=== PATIENT | female | born 1955 ===

== ENCOUNTER 2017-11-28 18:07 | Emergency (ER) | payer MEDICARE, MEDICAID ==
[2017-11-28 18:13] VITALS: RESP 20
--- NOTE | 2017-11-28 20:15 | C.PDOC ---
History Of Present Illness Patient presents to the ER with a complaint of fever, cough, and headache with cough since yesterday; associated with 4-5 episodes of emesis and decreased PO intake. Denies abdominal pain, diarrhea, chest pain, or SOB. Time Seen by Provider: 11/28/17 20:13 Chief Complaint (Nursing): Fever History Per: Patient History/Exam Limitations: no limitations Current Symptoms Are (Timing): Still Present Sick Contacts (Context): None Associated Symptoms: Fever, Cough, Vomiting, Other (Headache w/ cough). denies : Diarrhea Ear Symptoms: Bilateral: None Severity: Moderate Pain Scale Rating Of: 4 Recent travel outside of the [place]: No Additional History Per: Patient Past Medical History Reviewed: Historical Data, Nursing Documentation, Vital Signs Vital Signs: Last Vital Signs Temp 99.7 F H 11/28/17 18:11 Pulse 97 H 11/28/17 18:11 Resp 20 11/28/17 18:55 BP 115/78 11/28/17 18:11 Pulse Ox 97 11/28/17 20:53 - Medical History PMH: Arthritis, Asthma, HTN, Osteoporosis Surgical History: Cholecystectomy - [facility] Procedures INCIS VULVA/PERINEUM NEC (06/16/14) TETANUS TOXOID ADMINIST (06/16/14) Family History: States: No Known Family Hx - Social History Hx Tobacco Use: No Hx Alcohol Use: No Hx Substance Use: No - Immunization History Hx Tetanus Toxoid Vaccination: No Hx Influenza Vaccination: Yes Hx Pneumococcal Vaccination: No Review Of Systems Constitutional: Positive for: Fever, Other (Decreased PO intake) ENT: Negative for: Throat Pain Cardiovascular: Negative for: Chest Pain, Palpitations Respiratory: Positive for: Cough. Negative for: Shortness of Breath Gastrointestinal: Positive for: Vomiting. Negative for: Diarrhea Musculoskeletal: Negative for: Back Pain Skin: Negative for: Rash Neurological: Positive for: Headache (w/ cough) Psych: Negative for: Suicidal ideation Physical Exam - Physical Exam Appears: Non-toxic Skin: Warm, Dry Head: Normacephalic Eye(s): bilateral: Normal Inspection Oral Mucosa: Dry Neck: Supple Chest: Symmetrical, No Tenderness Cardiovascular: Rhythm Regular Respiratory: No Rales, No Rhonchi, No Wheezing Gastrointestinal/Abdominal: Soft, No Tenderness Back: Normal Inspection Extremity: Bilateral: Atraumatic Neurological/Psych: Oriented x3 Gait: Steady ED Course And Treatment - Laboratory Results Result Diagrams: 11/28/17 20:44 11/28/17 20:44 ECG: Interpreted By Me, Viewed By Me O2 Sat by Pulse Oximetry: 97 (Room air) Pulse Ox Interpretation: Normal - Radiology CXR: Interpreted by Me, Viewed By Me CXR Interpretation: No: Infiltrates, Fracture, Pnemothorax Progress Note: Blood work, urinalysis, and CXR ordered. Tamiflu, zofran, toradol , and IV fluids administered. Disposition Discussed With Dr.: Yulissa Greene Comment: accepted the pt on his service and took over the care at 9AM Doctor Will See Patient In The: Hospital Counseled Patient/Family Regarding: Studies Performed, Diagnosis - Disposition Disposition: HOSPITALIZED Disposition Time: 20:13 Condition: FAIR Forms: [employer] (Macedonian) - Clinical Impression Clinical Impression: Polysubstance abuse - Scribe Statement The provider has reviewed the documentation as recorded by the Scribe Orlando Flores All medical record entries made by the Scribe were at my direction and personally dictated by me. I have reviewed the chart and agree that the record accurately reflects my personal performance of the history, physical exam, medical decision making, and the department course for this patient. I have also personally directed, reviewed, and agree with the discharge instructions and disposition. Decision To Admit - Pt Status Changed To: Hospital Disposition Of: Inpatient - Admit Certification Admit to Inpatient:: After my assessment, the patient will require hospitalization for at least two midnights. This is because of the severity of symptoms shown, intensity of services needed, and/or the medical risk in this patient being treated as an outpatient. - InPatient: Physician Admission Certification:: After my assessment, the patient will require hospitalization for at least two midnights. This is because of the severity of symptoms shown, intensity of services needed, and/or the medical risk in this patient being treated as an outpatient. - . Bed Request Type: Detox Admitting Physician: Yulissa Greene Patient Diagnosis: Polysubstance abuse
[2017-11-28] MEDS ORDERED: Sodium Chloride 0.9% 1,000 ML IV ONE (20:28)
[2017-11-28 20:48] LABS: BASO % 0.4 % (0.0-2.0); EOS # 0.1 K/uL (0.0-0.7); EOS % 1.1 % (0.0-4.0); HEMOGLOBIN 14.9 g/dL (11.0-16.0); LYMPH # 0.9 K/uL (1.0-4.3); LYMPH % 16.2 % (20.0-40.0); MEAN CELL VOLUME 92.4 fL (81.0-99.0); MEAN CORPUSCULAR HEMOGLOBIN 31.2 pg (27.0-31.0); MEAN CORPUSCULAR HGB CONC 33.8 g/dL (33.0-37.0); MEAN PLATELET VOLUME 10.5 fL (7.2-11.7); MONO # 0.6 K/uL (0.0-0.8); MONO % 10.7 % (0.0-10.0); NEUT % 71.6 % (50.0-75.0); RBC 4.77 Mil/uL (3.80-5.20); RED CELL DISTRIBUTION WIDTH 13.4 % (11.5-14.5); WHITE BLOOD COUNT 5.6 K/uL (4.8-10.8)
[2017-11-28 20:56] LABS: INR 1.1
[2017-11-28 21:01] LABS: CALCIUM 9.8 mg/dl (8.6-10.4); GFR AFRICAN-AMERICAN > 60; GFR NON-AFRICAN AMERICAN > 60
[2017-11-28 21:08] LABS: ALB/GLOB RATIO 1.2 (1.0-2.1); ALBUMIN 4.3 g/dL (3.5-5.0); ALT/SGPT 54 U/L (9-52); AST/SGOT 57 U/L (14-36); BLOOD UREA NITROGEN 14 mg/dL (7-17)
[2017-11-28 21:30] LABS: VENOUS BLOOD GAS BASE EXCESS 1.3 mmol/L (0.0-2.0); VENOUS BLOOD GAS PCO2 47 mmHg (40-60); VENOUS BLOOD GAS PO2 31 mm/Hg (30-55); VENOUS BLOOD PH 7.37 (7.32-7.43)
[2017-11-28] MEDS ORDERED: Iodixanol 320 MG/ML 100 ML BOTTLE IV ONE (22:09)
[2017-11-28 22:14] LABS: SQUAMOUS EPITHIAL 4 /hpf (0-5); URINE BACTERIA OCC (<OCC); URINE BILIRUBIN NEGATIVE (NEGATIVE); URINE BLOOD 1+ (NEGATIVE); URINE CLARITY Clear (Clear); URINE COLOR Yellow (YELLOW); URINE GLUCOSE (UA) NORMAL (Normal); URINE LEUKOCYTE ESTERASE 3+ Leu/uL (Negative); URINE NITRATE NEGATIVE (NEGATIVE); URINE PROTEIN NEGATIVE (NEGATIVE); URINE UROBILINOGEN NORMAL mg/dL (0.2-1.0)
[2017-11-28] MEDS ORDERED: Piperacillin/Tazobact 3.375 gm 100 ML IVPB STA (22:18)
--- NOTE | 2017-11-28 23:06 | CT ---
EXAM: CT Abdomen and Pelvis With Intravenous Contrast EXAM DATE/TIME: 11/28/2017 9:21 PM CLINICAL HISTORY: 61 years old, female; Pain and signs and symptoms and abnormal findings; Abnormal lab test; Elevated lipase; Vomiting; Abdominal pain; Generalized; Additional info: Abd pain, elevated liver enzymes TECHNIQUE: Axial computed tomography images of the abdomen and pelvis with intravenous contrast. All CT scans at this facility use one or more dose reduction techniques, viz.: automated exposure control; ma/kV adjustment per patient size (including targeted exams where dose is matched to indication; i.e. head); or iterative reconstruction technique. Coronal and sagittal reformatted images were created and reviewed. CONTRAST: 100 mL of VISIPAQUE 320 administered intravenously. COMPARISON: There are no prior studies for comparison. FINDINGS: Lower thorax: Heart size is normal. There is a small hiatal hernia. There is dependent atelectasis at the lung bases. ABDOMEN: Liver: There is fatty infiltration of the liver. Gallbladder and bile ducts: Gallbladder is absent.Common duct is unremarkable. Pancreas: Pancreas is mildly atrophic. Spleen: unremarkable Adrenals: unremarkable Kidneys and ureters: There are bilateral renal cysts. Kidneys and ureters are otherwise unremarkable. Stomach and bowel: Stomach is partially distended. Rotation is normal. There is no obstruction. Ileocecal region is unremarkable. Appendix and terminal ileum are unremarkable. Colon is incompletely distended which limits evaluation.There is diverticulosis. Appendix: See stomach and bowel PELVIS: Bladder: unremarkable Reproductive: Uterus and adnexal structures are unremarkable. ABDOMEN and PELVIS: Intraperitoneal space: There is no free air or free fluid. Bones/joints: There are no acute osseous abnormalities. There are no acute osseous abnormalities. Soft tissues: There is a small fat containing umbilical hernia. Vasculature: There are vascular calcifications. Lymph nodes: unremarkable IMPRESSION: Fatty liver, no acute solid visceral abnormality; cholecystectomy; no CT findings of appendicitis or diverticulitis Additional nonemergent findings as described above.
[2017-11-28 23:47] VITALS: BP 124/75; PULSE 88; TEMP 99; O2SAT 98
--- NOTE | 2017-11-29 07:34 | RAD ---
HISTORY: SOB COMPARISON: Portable chest 03/07/2014. TECHNIQUE: Chest PA and lateral FINDINGS: LUNGS: No acute infiltrate bilaterally. Linear atelectasis or fibrosis seen minimally at the left base laterally. PLEURA: No significant pleural effusion identified. No pneumothorax apparent. CARDIOVASCULAR: Normal. OSSEOUS STRUCTURES: No significant abnormalities. VISUALIZED UPPER ABDOMEN: Normal. OTHER FINDINGS: None. IMPRESSION: Trace linear atelectasis or fibrosis at the inferior left base laterally. Remainder of the examination appears unremarkable.
== END 2017-11-29 00:15 | disposition home or self-care (01) ==
LOC: C.ER 18:07
DX: F19.10 Other psychoactive substance abuse, uncomplicated (principal); I10 Essential (primary) hypertension
CPT/HCPCS: 71046; 74177; 80053; 81001; 82009; 82803; 85025; 85610; 85730; 96361; 96374; 96375; 99285; J1885; J2405; J7040; Q9967

== ENCOUNTER 2018-08-17 15:07 | Emergency (ER) | payer MEDICARE, MEDICAID ==
[2018-08-17 15:26] VITALS: PULSE 73
--- NOTE | 2018-08-17 15:29 | C.PDOC ---
History Of Present Illness 62 yo female w/PMHx of asthma, HTN come in for evaluation of cold sx gradually developed for past 3 days associated with low grade fever, nasal congestion, dry cough gradually worsen. Pt reports, since today AM developed some chest tightness with cough. Otherwise, pt denies high fever, lethargy, drooling, dysphagia, dypsnea, SOB, wheezing, CP, palpitation, abd. pain, N/V, back pain, UTI sx. Ambulate to Ed for evaluation, not in any apparent distress. Time Seen by Provider: 08/17/18 15:13 Chief Complaint (Nursing): Flu-like Symptoms History Per: Patient Past Medical History Reviewed: Historical Data, Nursing Documentation, Vital Signs Vital Signs: Last Vital Signs Temp 98.1 F 08/17/18 15:09 Pulse 73 08/17/18 15:09 Resp 20 08/17/18 15:09 BP 130/85 08/17/18 15:09 Pulse Ox 99 08/17/18 15:09 - Medical History PMH: Arthritis, Asthma, HTN, Osteoporosis Surgical History: Cholecystectomy - [facility] Procedures INCIS VULVA/PERINEUM NEC (06/16/14) TETANUS TOXOID ADMINIST (06/16/14) Family History: States: Unknown Family Hx - Social History Hx Tobacco Use: No Hx Alcohol Use: No Hx Substance Use: No - Immunization History Hx Tetanus Toxoid Vaccination: No Hx Influenza Vaccination: No Hx Pneumococcal Vaccination: No Review Of Systems Except As Marked, All Systems Reviewed And Found Negative. Constitutional: Positive for: Fever (low grade). Negative for: Chills ENT: Positive for: Nose Discharge, Nose Congestion, Throat Pain. Negative for: Ear Discharge Cardiovascular: Negative for: Chest Pain, Palpitations, Edema, Light Headedness Respiratory: Positive for: Cough. Negative for: Shortness of Breath, SOB with Excertion, Pleuritic Pain, Sputum, Wheezing Gastrointestinal: Negative for: Nausea, Abdominal Pain, Diarrhea Genitourinary: Negative for: Dysuria Musculoskeletal: Negative for: Neck Pain Skin: Negative for: Rash Neurological: Negative for: Weakness, Numbness, Headache, Dizziness Physical Exam - Physical Exam Appears: Well, Non-toxic, No Acute Distress Skin: Normal Color, Warm, Dry, No Rash Head: Normacephalic Eye(s): bilateral: PERRL Ear(s): Bilateral: Normal Nose: No Flaring, Discharge (B/L nasal congestion with scant clear rhinorrhea) Oral Mucosa: Moist, No Drooling Tongue: Normal Appearing Lips: Normal Appearing Throat: No Erythema, No Drooling Neck: Trachea Midline, Supple Cardiovascular: Rhythm Regular, No Murmur, No JVD Respiratory: No Decreased Breath Sounds, No Accessory Muscle Use, No Stridor, No Wheezing Gastrointestinal/Abdominal: Soft, No Tenderness, No Distention, No Guarding, No Rebound Extremity: Normal ROM, No Pedal Edema, No Deformity, No Swelling Neurological/Psych: Oriented x3, Normal Speech, Normal Motor, Normal Sensation, Normal Reflexes ED Course And Treatment ECG: Interpreted By Me, Viewed By Me ECG Rhythm: Sinus Rhythm Interpretation Of ECG: SR@83/min, NAD, no acute T wave or ST-T changes O2 Sat by Pulse Oximetry: 99 Pulse Ox Interpretation: Normal - Radiology CXR: Interpreted by Me, Viewed By Me CXR Interpretation: Yes: No Acute Disease Progress Note: On re-eval, pt is afebrile, hemodynamicaly stable. Non-toxic, tolerate Po well in ED. PulsEOx 99% RA. ENT: no acute findings. neck: Supple, (-) JVD, (-) meningeal sign. Lungs: CTA B/L, BS equal B/L. Abd: benign, (-) guarding, (-) rebound. Back: (-) CVA tenderness. Neurologicaly intact. CXR- normal study. Influenza (-). Pt has clinical findings c/w acute bronchitis. Pt advised. ref. to f/u with PMD in 2-3 days for re-eval. return to ED if any worsening or new changes. Disposition Counseled Patient/Family Regarding: Studies Performed, Diagnosis, Need For Followup, Rx Given - Disposition Referrals: Eliza Baker MD [Medical Doctor] - Disposition: HOME/ ROUTINE Disposition Time: 15:55 Condition: STABLE Additional Instructions: Encourage fluids Take medication as prescribed Follow up with PMD in 2-3 days for re-evaluation. return to ED if any worsening or new changes. Prescriptions: Albuterol HFA [Ventolin HFA 90 mcg/actuation (8 g)] 1 puff IH Q6 #1 inhaler Azithromycin [Zithromax] 250 mg PO DAILY #4 tab Prednisone [Deltasone] 40 mg PO DAILY #6 tablet Promethazine/Codeine [Phenergan/Codeine Oral Syrup] 10 ml PO Q6 #100 ml Instructions: Acute Bronchitis, Adult (DC) Forms: [employer] (Danish) Print Language: LATVIAN - Clinical Impression Clinical Impression: Bronchitis
[2018-08-17] MEDS ORDERED: Albuterol 0.083% Inhal Sol (2.5 mg/3 mL) UD IH STA (15:33)
[2018-08-17] MEDS ORDERED: Promethazine/Cod 6.25mg-10mg/5ml Syr UD PO STA (15:37)
[2018-08-17] MEDS ORDERED: Albuterol 0.083% Inhal Sol (2.5 mg/3 mL) UD ONE (15:43)
[2018-08-17] MEDS ORDERED: Promethazine/Cod 6.25mg-10mg/5ml Syr UD ONE (15:52)
--- NOTE | 2018-08-17 15:56 | RAD ---
HISTORY: Cough COMPARISON: Chest x-ray performed 03/21/18 TECHNIQUE: Chest PA and lateral FINDINGS: Examination limited by habitus. LUNGS: No focal consolidation. Please note that chest x-ray has limited sensitivity for the detection of pulmonary masses. PLEURA: No significant pleural effusion identified. No definite pneumothorax . CARDIOVASCULAR: Heart size appears within normal limits. No atherosclerotic calcification present. OSSEOUS STRUCTURES: Degenerative changes of the spine. VISUALIZED UPPER ABDOMEN: Unremarkable. OTHER FINDINGS: None. IMPRESSION: No focal consolidation.
[2018-08-17 16:52] VITALS: BP 123/80; RESP 18; TEMP 99.2; O2SAT 96
--- NOTE | 2018-08-21 22:15 | CARD ---
APPROVED REPORT Date of service: 08/17/2018 EKG Measurement Heart [id number] <Conclusion> Normal sinus rhythm Moderate voltage criteria for LVH, may be normal variant Cannot rule out Inferior infarct, age undetermined Abnormal ECG
== END 2018-08-17 17:12 | disposition home or self-care (01) ==
LOC: C.ER 15:07
DX: J40 Bronchitis, not specified as acute or chronic (principal); I10 Essential (primary) hypertension

== ENCOUNTER 2018-12-01 08:20 | Emergency (ER) | payer MEDICARE, MEDICAID ==
[2018-12-01 08:30] VITALS: RESP 18
[2018-12-01] MEDS ORDERED: Albuterol-Ipratrop 3 mg / 0.5 (3 ml) UD INH STA (08:50)
[2018-12-01] MEDS ORDERED: Albuterol-Ipratrop 3 mg / 0.5 (3 ml) UD ONE (09:08)
--- NOTE | 2018-12-01 10:05 | C.PDOC ---
History Of Present Illness 62 year old female with a history of asthma, diabetes, and hypertension presents to the ED for evaluation of sore throat and productive cough for 1 week. The patient admits to taking Tylenol for her current symptoms with no relief. Notes she has an inhaler but has not used it. States she is compliant with her medications for diabetes and hypertension. Denies fever, chills, vomiting, diarrhea, known allergies to medications, and any other associated symptoms. Time Seen by Provider: 12/01/18 08:30 Chief Complaint (Nursing): Flu-like Symptoms History Per: Patient History/Exam Limitations: no limitations Onset/Duration Of Symptoms: Days (x1 week. ) Current Symptoms Are (Timing): Still Present Recent travel outside of the [place]: No Past Medical History Reviewed: Historical Data, Nursing Documentation, Vital Signs Vital Signs: Last Vital Signs Temp 99.2 F 12/01/18 08:24 Pulse 102 H 12/01/18 08:24 Resp 18 12/01/18 08:24 BP 146/90 12/01/18 08:24 Pulse Ox 97 12/01/18 08:24 - Medical History PMH: Arthritis, Asthma, HTN, Osteoporosis Surgical History: Cholecystectomy - [facility] Procedures INCIS VULVA/PERINEUM NEC (06/16/14) TETANUS TOXOID ADMINIST (06/16/14) Family History: States: Unknown Family Hx - Social History Hx Tobacco Use: No Hx Alcohol Use: No Hx Substance Use: No - Immunization History Hx Tetanus Toxoid Vaccination: No Hx Influenza Vaccination: No Hx Pneumococcal Vaccination: No Review Of Systems Except As Marked, All Systems Reviewed And Found Negative. Constitutional: Negative for: Fever, Chills ENT: Positive for: Throat Pain (sore. ) Respiratory: Positive for: Cough (productive. ) Gastrointestinal: Negative for: Nausea, Vomiting Physical Exam - Physical Exam Appears: Non-toxic, No Acute Distress Skin: Warm, Dry Head: Atraumatic, Normacephalic Eye(s): bilateral: Normal Inspection Ear(s): Bilateral: Normal Nose: Normal Oral Mucosa: Moist Throat: Normal, No Erythema Neck: Normal ROM, Supple Chest: Symmetrical, No Deformity Cardiovascular: Rhythm Regular, No Murmur Respiratory: No Rales, Rhonchi (scattered. ), No Wheezing Gastrointestinal/Abdominal: Normal Exam, Soft, No Tenderness Extremity: Bilateral: Atraumatic, Normal Color And Temperature, Normal ROM Neurological/Psych: Oriented x3, Normal Speech, Normal Cognition ED Course And Treatment O2 Sat by Pulse Oximetry: 97 (RA) Pulse Ox Interpretation: Normal - Radiology CXR: Interpreted by Me, Viewed By Me CXR Interpretation: Yes: No Acute Disease. No: Infiltrates Medical Decision Making Medical Decision Making: Initial plan: -CXR -Claritin -Duoneb -Prednisone Progress/Update: Patient stable for discharge home. Prescribed Prednisone, Promathazine/Codeine, and Loratadine-D. Advised to follow-up with PMD with 2-3 days. Disposition - Disposition Referrals: Eliza Baker MD [Medical Doctor] - Disposition: HOME/ ROUTINE Disposition Time: 10:08 Condition: GOOD Additional Instructions: Follow up with the medical doctor within 1-2 days. Return if worsened. Prescriptions: Loratadine/Pseudoephedrine [Loratadine-D 24Hr Tablet] 1 each PO DAILY #10 tab.er.24h predniSONE [Prednisone] 20 mg PO BID #10 tab Promethazine/Codeine [Codeine/Promethazine 10 MG/5 Ml-6.25 MG/5 Ml] 5 ml PO Q8 PRN #50 ml PRN Reason: Cough Instructions: Acute Bronchitis Forms: [employer] (Japanese) Print Language: [place] - Clinical Impression Clinical Impression: Bronchitis, Asthma - PA / EMERGENCY PLANNER / Resident Statement MD/DO has reviewed & agrees with the documentation as recorded. - Scribe Statement The provider has reviewed the documentation as recorded by the Scribe (Christen Padilla) All medical record entries made by the Scribe were at my direction and personally dictated by me. I have reviewed the chart and agree that the record accurately reflects my personal performance of the history, physical exam, medical decision making, and the department course for this patient. I have also personally directed, reviewed, and agree with the discharge instructions and disposition.
[2018-12-01 10:09] VITALS: BP 135/87; PULSE 92; TEMP 98.2
[2018-12-01 10:10] VITALS: O2SAT 97
--- NOTE | 2018-12-01 11:53 | RAD ---
Date of service: 12/01/2018 HISTORY: Cough rhonchi COMPARISON: Comparison chest dated 08/17/2018. TECHNIQUE: Chest PA and lateral FINDINGS: LUNGS: Minor bibasilar atelectasis. PLEURA: No significant pleural effusion identified. No pneumothorax apparent. CARDIOVASCULAR: No aortic atherosclerotic calcification present. Normal cardiac size. No pulmonary vascular congestion. OSSEOUS STRUCTURES: No significant abnormalities. VISUALIZED UPPER ABDOMEN: Normal. OTHER FINDINGS: None. IMPRESSION: Minor bibasilar atelectasis
== END 2018-12-01 10:26 | disposition home or self-care (01) ==
LOC: C.ER 08:20
DX: J45.909 Unspecified asthma, uncomplicated (principal)

== ENCOUNTER 2018-12-02 00:25 | Emergency (ER) | payer MEDICARE, MEDICAID ==
[2018-12-02 00:34] VITALS: RESP 20; O2SAT 95
--- NOTE | 2018-12-02 01:22 | C.PDOC ---
History Of Present Illness 62 year old female with PMHx of HTN presents to the ED c/o persistent headache since yesterday. Patient with history of intermittent headache once of twice a week. Patient states current headache is more intense than usual. Patient took Motrin at 20:00 with no relief. Patient was seen on 12/01 and diagnosed with Bronchitis, patient was D/C after nebulizer and steroid. Patient reports she saw her test cell technician yesterday for HTN states she is complaint with medications. Patient denies fever, chills, visual changes, nausea, vomit, rash, weakness, numbness, SOB, CP. CO PERSIST LIND SINCE YEST. HO INTERMIT LIND 1-2X/WK. CURRENT LIND MORE INTENSE THAN USUAL. NO IMPROVE MOTRIN @ 8 PM. NO FEVER, NV. EVAL 3/2 DX BRONCHITIS, S/P NEB AND STEROID. 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 EXAM NEG Time Seen by Provider: 12/02/18 01:10 Chief Complaint (Nursing): Palpitations History Per: Patient History/Exam Limitations: no limitations Onset/Duration Of Symptoms: Days (1) Current Symptoms Are (Timing): Still Present Quality: "Pain" Recent travel outside of the [place]: No Additional History Per: Patient Past Medical History Reviewed: Historical Data, Nursing Documentation, Vital Signs Vital Signs: Last Vital Signs Temp 98.3 F 12/02/18 00:31 Pulse 116 H 12/02/18 00:31 Resp 20 12/02/18 00:31 BP 167/111 H 12/02/18 00:31 Pulse Ox 95 12/02/18 00:31 - Medical History PMH: Arthritis, Asthma, Bronchitis, HTN, Osteoporosis Surgical History: Cholecystectomy - [facility] Procedures INCIS VULVA/PERINEUM NEC (06/16/14) TETANUS TOXOID ADMINIST (06/16/14) Family History: States: Unknown Family Hx - Social History Hx Tobacco Use: No Hx Alcohol Use: No Hx Substance Use: No - Immunization History Hx Tetanus Toxoid Vaccination: No Hx Influenza Vaccination: No Hx Pneumococcal Vaccination: No Review Of Systems Constitutional: Negative for: Fever Eyes: Negative for: Vision Change Cardiovascular: Negative for: Chest Pain, Palpitations Respiratory: Negative for: Shortness of Breath Gastrointestinal: Negative for: Nausea, Vomiting, Abdominal Pain Skin: Negative for: Rash Neurological: Positive for: Headache. Negative for: Weakness, Numbness, Dizziness Physical Exam - Physical Exam Appears: Non-toxic, No Acute Distress Skin: Normal Color, Warm, Dry Head: Atraumatic, Normacephalic Eye(s): bilateral: Normal Inspection, PERRL, EOMI Neck: Normal ROM, No Midline Cervical Tenderness, Supple Chest: Symmetrical Cardiovascular: Rhythm Regular Respiratory: Normal Breath Sounds, No Rales, No Rhonchi, No Wheezing Gastrointestinal/Abdominal: Soft, No Tenderness, No Guarding, No Rebound Extremity: Normal ROM, No Tenderness, No Swelling Neurological/Psych: Oriented x3, Normal Speech, Normal Cognition Gait: Steady ED Course And Treatment ECG: Interpreted By Me ECG Rhythm: Sinus Tachycardia ECG Interpretation: Abnormal Rate From EC O2 Sat by Pulse Oximetry: 95 (ON RA) Pulse Ox Interpretation: Normal - CT Scan/US CT head Other Rad Studies (CT/US): Read By Radiologist, Radiology Report Reviewed CT/US Interpretation: EXAM: CT Head without Intravenous Contrast. CLINICAL HISTORY: Headaches. TECHNIQUE: Axial computed tomography images of the head/brain without intravenous contrast. 0.00 mGy-cm. COMPARISON: None provided. FINDINGS: BRAIN. No acute intraparenchymal hemorrhage. No mass lesion. No CT evidence for acute territorial infarct. No midline shift or extra- axial collections. VENTRICLES: No hydrocephalus. ORBITS: The orbits are unremarkable. SINUSES AND MASTOIDS: The paranasal sinuses and mastoid air cells are clear. BONES: No fracture. SOFT TISSUES: Unremarkable. IMPRESSION: No acute intracranial abnormality. . Electronically signed on Dec 02, 2018 2:43:44 AM EST by: Andrew Clark M.D., ALAINA Certified By ABR & CBCCT. Fellowship Trained MRI and CT Specialist. Reevaluation Time: 02:57 Reassessment Condition: Improved Medical Decision Making Medical Decision Making: Plan: * CT head * Decadron 8 mg IVP * Mag sulfate IVPB * Reglan 10 mg IVP * Toradol 30 mg IVP * Tylenol 975 mg PO Disposition Counseled Patient/Family Regarding: Studies Performed, Diagnosis, Need For Followup - Disposition Referrals: YOUR,PMD [Other] Disposition: HOME/ ROUTINE Disposition Time: 02:57 Condition: IMPROVED Instructions: Headache, Adult (DC), Palpitations (DC) Forms: [employer] (Citizen Of [place]) Print Language: SOMALI - Clinical Impression Clinical Impression: Palpitations, Headache - Scribe Statement The provider has reviewed the documentation as recorded by the Scribe Regan Pugh All medical record entries made by the Nafisaibe were at my direction and personally dictated by me. I have reviewed the chart and agree that the record accurately reflects my personal performance of the history, physical exam, medical decision making, and the department course for this patient. I have also personally directed, reviewed, and agree with the discharge instructions and disposition.
[2018-12-02] MEDS ORDERED: Magnesium Sulfate 1 gm in D5W 1 GM/100 ML BAG IVPB STA (01:29)
[2018-12-02] MEDS ORDERED: Dexamethasone 4 mg/1 ml IVP STA (01:29)
[2018-12-02] MEDS ORDERED: Dexamethasone 4 mg/1 ml ONE (01:40)
[2018-12-02] MEDS ORDERED: Magnesium Sulfate 1 gm in D5W 1 GM/100 ML BAG IVPB ONE (01:41)
[2018-12-02 02:48] VITALS: BP 132/82; PULSE 100; TEMP 98
--- NOTE | 2018-12-02 10:43 | CT ---
Date of service: 12/02/2018 PROCEDURE: CT HEAD WITHOUT CONTRAST. HISTORY: HEADACHE COMPARISON: None available. TECHNIQUE: Axial computed tomography images were obtained through the head/brain without intravenous contrast. Radiation dose: Total exam DLP = 898.59 mGy-cm. This CT exam was performed using one or more of the following dose reduction techniques: Automated exposure control, adjustment of the mA and/or kV according to patient size, and/or use of iterative reconstruction technique. FINDINGS: HEMORRHAGE: No intracranial hemorrhage. BRAIN: No mass effect or edema. No atrophy or chronic microvascular ischemic changes. VENTRICLES: Unremarkable. No hydrocephalus. CALVARIUM: Unremarkable. PARANASAL SINUSES: Unremarkable as visualized. No significant inflammatory changes. MASTOID AIR CELLS: Unremarkable as visualized. No inflammatory changes. OTHER FINDINGS: None. IMPRESSION: No acute intracranial hemorrhage.
--- NOTE | 2018-12-03 22:33 | CARD ---
APPROVED REPORT Date of service: 12/02/2018 EKG Measurement Heart [id number] <Conclusion> Sinus tachycardia Possible Left atrial enlargement Nonspecific ST abnormality Abnormal ECG
== END 2018-12-02 03:25 | disposition home or self-care (01) ==
LOC: C.ER 00:25
DX: R00.2 Palpitations (principal); R51 Headache; I10 Essential (primary) hypertension
CPT/HCPCS: 70450; 93005; 96365; 96375; 99284; J1100; J1885; J2765; J3475

== ENCOUNTER 2018-12-02 23:58 | Emergency (ER) | payer MEDICARE, MEDICAID ==
[2018-12-03 00:19] VITALS: TEMP 98.7
--- NOTE | 2018-12-03 00:31 | C.PDOC ---
History Of Present Illness 62 year old female with PMHx of HTN presents to the ED for evaluation. Patient has multiple frequent visits to the ED for same. Patient states her blood pressure his elevated, she does not have a machine at home to measure it. Prabhu johnson states "my face is red which means my blood pressure is high". Patient denies fever, chills, headache, nausea, vomit, visual changes, dizziness, weakness, numbness, CP, SOB. Time Seen by Provider: 12/03/18 00:30 Chief Complaint (Nursing): High Blood Pressure History Per: Patient History/Exam Limitations: no limitations Onset/Duration Of Symptoms: Hrs Current Symptoms Are (Timing): Still Present Reports Recently: Seen In ED (12/02/2018) Recent travel outside of the [place]: No Additional History Per: Patient Past Medical History Reviewed: Historical Data, Nursing Documentation, Vital Signs Vital Signs: Last Vital Signs Temp 98.7 F 12/03/18 00:04 Pulse 91 H 12/03/18 00:04 Resp 14 12/03/18 00:04 BP 139/90 12/03/18 00:04 Pulse Ox 99 12/03/18 00:04 - Medical History PMH: Arthritis, Asthma, Bronchitis, HTN, Osteoporosis Surgical History: Cholecystectomy - [facility] Procedures INCIS VULVA/PERINEUM NEC (06/16/14) TETANUS TOXOID ADMINIST (06/16/14) Family History: States: Unknown Family Hx - Social History Hx Tobacco Use: No Hx Alcohol Use: No Hx Substance Use: No - Immunization History Hx Tetanus Toxoid Vaccination: No Hx Influenza Vaccination: No Hx Pneumococcal Vaccination: No Review Of Systems Constitutional: Negative for: Fever, Chills Eyes: Negative for: Vision Change Cardiovascular: Negative for: Chest Pain, Palpitations Respiratory: Negative for: Cough, Shortness of Breath Gastrointestinal: Negative for: Nausea, Vomiting, Abdominal Pain Skin: Negative for: Rash Neurological: Negative for: Weakness, Numbness, Headache, Dizziness Physical Exam - Physical Exam Appears: Non-toxic, No Acute Distress Skin: Warm, Dry Head: Normacephalic Eye(s): bilateral: Normal Inspection, PERRL, EOMI Neck: Supple Chest: Symmetrical Cardiovascular: Rhythm Regular Respiratory: No Rales, No Rhonchi, No Wheezing Gastrointestinal/Abdominal: Soft, No Tenderness, No Guarding, No Rebound Extremity: Bilateral: Atraumatic, Normal Color And Temperature, Normal ROM Neurological/Psych: Oriented x3, Normal Speech, Normal Cognition, Other (non focal) Gait: Steady ED Course And Treatment - Laboratory Results Result Diagrams: 12/03/18 01:29 12/03/18 01:29 ECG: Interpreted By Me, Viewed By Me ECG Rhythm: Sinus Rhythm (86), Nonspecific Changes O2 Sat by Pulse Oximetry: 99 (ON RA) Pulse Ox Interpretation: Normal - Radiology CXR: Interpreted by Me, Viewed By Me Progress Note: Plan: - EKG. - LAbs. - CXR. - UA Reevaluation Time: 03:13 Reassessment Condition: Improved Medical Decision Making Medical Decision Making: Upon provider reevaluation patient is feeling better, is medically stable, and requires no further treatment in the ED at this time. Patient will be discharged home . Counseling was provided and all questions were answered regarding diagnosis and need for follow up with dr baker. There is agreement to discharge plan. Return if symptoms persist or worsen. Disposition Counseled Patient/Family Regarding: Studies Performed, Diagnosis, Need For Followup - Disposition Referrals: Eliza Baker MD [Medical Doctor] - Disposition: HOME/ ROUTINE Disposition Time: 00:31 Condition: FAIR Additional Instructions: Regrese si los sntomas recurren si tiene fiebre, escalofros, tos productiva, disuria o simplemente no se siente kaitlynn Instructions: White Blood Cell Count Differential Test, High Blood Pressure (DC) Forms: [employer] (Citizen Of [place]) Print Language: MALAYSIAN - Clinical Impression Clinical Impression: Leukocytosis, Hypertension - Scribe Statement The provider has reviewed the documentation as recorded by the Scribe Regan Pugh All medical record entries made by the Scribe were at my direction and personally dictated by me. I have reviewed the chart and agree that the record accurately reflects my personal performance of the history, physical exam, medical decision making, and the department course for this patient. I have also personally directed, reviewed, and agree with the discharge instructions and disposition.
[2018-12-03 01:33] LABS: BASO # 0.1 K/uL (0.0-0.2); BASO % 0.3 % (0.0-2.0); EOS % 0.1 % (0.0-4.0); HEMOGLOBIN 14.3 g/dL (11.0-16.0); LYMPH # 2.1 K/uL (1.0-4.3); LYMPH % 10.3 % (20.0-40.0); MEAN CORPUSCULAR HEMOGLOBIN 30.9 pg (27.0-31.0); MEAN CORPUSCULAR HGB CONC 32.5 g/dL (33.0-37.0); MEAN PLATELET VOLUME 10.4 fL (7.2-11.7); MONO # 1.2 K/uL (0.0-0.8); MONO % 5.9 % (0.0-10.0); NEUT # 16.9 K/uL (1.8-7.0); NEUT % 83.4 % (50.0-75.0); RBC 4.65 Mil/uL (3.80-5.20); RED CELL DISTRIBUTION WIDTH 13.6 % (11.5-14.5)
[2018-12-03 01:35] LABS: SQUAMOUS EPITHIAL 5 /hpf (0-5); URINE BACTERIA RARE (<OCC); URINE BILIRUBIN NEGATIVE (NEGATIVE); URINE BLOOD NEGATIVE (NEGATIVE); URINE CLARITY Clear (Clear); URINE COLOR Yellow (YELLOW); URINE GLUCOSE (UA) NORMAL (Normal); URINE PROTEIN NEGATIVE (NEGATIVE); URINE UROBILINOGEN NORMAL mg/dL (0.2-1.0)
[2018-12-03 01:37] LABS: WHITE BLOOD COUNT 20.2 K/uL (4.8-10.8)
[2018-12-03 01:39] LABS: URINE LEUKOCYTE ESTERASE TRACE Leu/uL (Negative)
[2018-12-03 01:42] LABS: INR 1.1; PROTHROMBIN TIME 11.8 SECONDS (9.7-12.2)
[2018-12-03 01:47] LABS: ALB/GLOB RATIO 1.4 (1.0-2.1); ALBUMIN 4.3 g/dL (3.5-5.0); ALT/SGPT 18 U/L (9-52); AST/SGOT 19 U/L (14-36); BLOOD UREA NITROGEN 26 mg/dL (7-17); CALCIUM 9.8 mg/dl (8.6-10.4); GFR NON-AFRICAN AMERICAN > 60; LIPASE 32 U/L (23-300)
[2018-12-03 03:35] LABS: HEMOGLOBIN 14.1 g/dL (11.0-16.0); MEAN CELL VOLUME 93.9 fL (81.0-99.0); MEAN CORPUSCULAR HEMOGLOBIN 30.9 pg (27.0-31.0); MEAN CORPUSCULAR HGB CONC 32.9 g/dL (33.0-37.0); MEAN PLATELET VOLUME 9.7 fL (7.2-11.7); RBC 4.58 Mil/uL (3.80-5.20); RED CELL DISTRIBUTION WIDTH 13.3 % (11.5-14.5)
[2018-12-03 04:39] VITALS: BP 114/70; PULSE 70; RESP 14; O2SAT 98
--- NOTE | 2018-12-03 11:37 | RAD ---
HISTORY: SOB COMPARISON: Chest x-ray performed 12/01/18 TECHNIQUE: Chest, one view. FINDINGS: Examination limited by habitus. LUNGS: No focal consolidation. Please note that chest x-ray has limited sensitivity for the detection of pulmonary masses. PLEURA: No significant pleural effusion identified. No definite pneumothorax . CARDIOVASCULAR: Heart size appears within normal limits. No significant atherosclerotic calcification present. OSSEOUS STRUCTURES: No acute osseous abnormality identified. VISUALIZED UPPER ABDOMEN: Unremarkable. OTHER FINDINGS: None. IMPRESSION: No focal consolidation.
--- NOTE | 2018-12-04 17:24 | CARD ---
APPROVED REPORT Date of service: 12/03/2018 EKG Measurement Heart [id number] <Conclusion> Normal sinus rhythm Possible Left atrial enlargement Left ventricular hypertrophy with repolarization abnormality Abnormal ECG
== END 2018-12-03 04:38 | disposition home or self-care (01) ==
LOC: C.ER 23:58
DX: I10 Essential (primary) hypertension (principal); D72.829 Elevated white blood cell count, unspecified
CPT/HCPCS: 71045; 80053; 81001; 83036; 83690; 83735; 84484; 85025; 85027; 85610; 85730; 93005; 96374; 99283; J1885

== ENCOUNTER 2018-12-05 22:55 | Observation (INO) | payer MEDICARE, MEDICAID ==
--- NOTE | 2018-12-05 23:33 | C.PDOC ---
History Of Present Illness 62 year old female with Hx of HTN, always had her blood pressure well controlled, 5 days ago was seen by her drawing hand and for the first time in a long time her pressure was not well controlled. Later that evening she came to the ER and was seen for asthma exacerbation with bronchitis, she was given claritin-d, prednisone, and cough syrups. The following day she came back the next day complaining of a persistent headache, her pressure was found to be elevated at 167/111, labs were done and over the course of the stay her pressure came down and she was discharged home only to return that evening with the same complaint of elevated blood pressure and headache, pressure at that time was at the 140/[address] Velazquez at the office yesterday for headache and palpitations, her blood pressure was found to be elevated, she was taken off Enalapril 20mg daily and started on lisinopril hctz 20/12.5. Now in the ER, patient complains of persistent headache and palpitation, pressure 180/109 at this time. Denies chest pain or SOB. Time Seen by Provider: 12/05/18 23:15 Chief Complaint (Nursing): High Blood Pressure History Per: Patient History/Exam Limitations: no limitations Onset/Duration Of Symptoms: Hrs Current Symptoms Are (Timing): Still Present Associated Symptoms: Headache, Other (Palpitations). denies: Chest Pain, Dys pnea Exacerbating Factor(s): Pos: None Recent travel outside of the [place]: No Past Medical History Reviewed: Historical Data, Nursing Documentation, Vital Signs Vital Signs: Last Vital Signs Temp 98.7 F 12/05/18 23:02 Pulse 88 12/05/18 23:02 Resp 18 12/05/18 23:02 BP 181/109 H 12/05/18 23:02 Pulse Ox 99 12/05/18 23:02 - Medical History PMH: Arthritis, Asthma, Bronchitis, HTN, Migraine, Osteoporosis Surgical History: Cholecystectomy - [facility] Procedures INCIS VULVA/PERINEUM NEC (06/16/14) TETANUS TOXOID ADMINIST (06/16/14) Family History: States: Unknown Family Hx - Social History Hx Tobacco Use: No Hx Alcohol Use: No Hx Substance Use: No - Immunization History Hx Tetanus Toxoid Vaccination: No Hx Influenza Vaccination: No Hx Pneumococcal Vaccination: No Review Of Systems Constitutional: Negative for: Fever, Chills Eyes: Negative for: Vision Change Cardiovascular: Positive for: Palpitations. Negative for: Chest Pain Respiratory: Negative for: Cough, Shortness of Breath Gastrointestinal: Negative for: Nausea, Vomiting, Diarrhea Musculoskeletal: Negative for: Back Pain Neurological: Positive for: Headache. Negative for: Weakness, Numbness Physical Exam - Physical Exam Appears: Non-toxic Skin: Normal Color, Warm, Dry Head: Atraumatic, Normacephalic Eye(s): bilateral: Normal Inspection, PERRL, EOMI Oral Mucosa: Moist Neck: Normal, No Midline Cervical Tenderness, No Paracervical Tenderness, Supple Chest: Symmetrical, No Tenderness Cardiovascular: Rhythm Regular Respiratory: Normal Breath Sounds, No Rales, No Rhonchi, No Wheezing Gastrointestinal/Abdominal: Soft, No Tenderness Extremity: Normal ROM (x4) Neurological/Psych: Oriented x3, Normal Speech ED Course And Treatment - Laboratory Results Result Diagrams: 12/05/18 23:41 12/05/18 23:41 Lab Interpretation: No Acute Changes ECG: Interpreted By Me ECG Rhythm: Sinus Rhythm (with LVH), R BBB (incomplete) ECG Interpretation: No Acute Changes O2 Sat by Pulse Oximetry: 99 (Room air) Pulse Ox Interpretation: Normal Progress Note: EKG and blood work ordered. Tylenol administered. Patient treated with Lopressor. - Physician Consult Information Time Consulting Physician Contacted: 00:07 Physician Contacted: Jeffrey Ken Jr. Outcome Of Conversation: Patient with persistent uncontrolled BP. Will admit to obs for management. Disposition - Disposition Disposition: HOSPITALIZED Disposition Time: 00:07 Condition: STABLE - POA Present On Arrival: None - Clinical Impression Clinical Impression: Uncontrolled hypertension - Scribe Statement The provider has reviewed the documentation as recorded by the Scribe Orlando Flores All medical record entries made by the Scribe were at my direction and personally dictated by me. I have reviewed the chart and agree that the record accurately reflects my personal performance of the history, physical exam, medical decision making, and the department course for this patient. I have also personally directed, reviewed, and agree with the discharge instructions and disposition.
[2018-12-05 23:44] LABS: RED CELL DISTRIBUTION WIDTH 13.4 % (11.5-14.5)
[2018-12-05 23:48] LABS: BASO % 0.3 % (0.0-2.0); EOS % 0.1 % (0.0-4.0); LYMPH # 2.3 K/uL (1.0-4.3); LYMPH % 20.1 % (20.0-40.0); MEAN CELL VOLUME 94.2 fL (81.0-99.0); MEAN CORPUSCULAR HEMOGLOBIN 31.3 pg (27.0-31.0); MEAN CORPUSCULAR HGB CONC 33.2 g/dL (33.0-37.0); MEAN PLATELET VOLUME 10.3 fL (7.2-11.7); MONO # 0.4 K/uL (0.0-0.8); MONO % 3.6 % (0.0-10.0); NEUT # 8.6 K/uL (1.8-7.0); NEUT % 75.9 % (50.0-75.0); RBC 5.12 Mil/uL (3.80-5.20); WHITE BLOOD COUNT 11.4 K/uL (4.8-10.8)
[2018-12-05 23:57] LABS: ALB/GLOB RATIO 1.5 (1.0-2.1); ALBUMIN 4.7 g/dL (3.5-5.0); ALT/SGPT 33 U/L (9-52); AST/SGOT 25 U/L (14-36); BLOOD UREA NITROGEN 20 mg/dL (7-17); CALCIUM 9.4 mg/dl (8.6-10.4); GFR NON-AFRICAN AMERICAN > 60
[2018-12-05] MEDS ORDERED: Metoprolol 1 mg/ml Inj IVP STA (23:59)
[2018-12-06] MEDS ORDERED: Metoprolol 1 mg/ml Inj ONE (00:11)
[2018-12-06 01:11] VITALS: RESP 20
[2018-12-06] MEDS ORDERED: Apap-Butalbital-Caffeine 325-50-40mg Tab PO PRN (01:11)
[2018-12-06] MEDS ORDERED: Dextrose 50% SYRINGE Inj (50 ml) IV PRN (01:29)
[2018-12-06] MEDS ORDERED: Glucagon Recombinant 1 mg Inj IM PRN (01:29)
--- NOTE | 2018-12-06 01:43 | CP.PCM.HP ---
History of Present Illness - History of Present Illness History of Present Illness: PGY-1 History and Physical for Dr. Ken Patient is a 62 year old female who presents with complaints of palpitations and headache, as well as high blood pressure from multiple ER visits this week. This past Thursday 11/30 patient went to see her biomedical photographer for a routine visit and states she was told her BP was high during that office visit. The following evening she presented to [facility] ED for complaints of cough and short ness of breath, was discharged with prescriptions for cough syrup, claritan D, and prednisone. Patient returned to ED on Monday morning with LIND and BP was 167/111 in ED, patient was sent home. She returned again with similar symptoms that evening and was again discharged and told to follow up with primary. Patient saw PMD Dr. Velazquez yesterday and meds were changed from Enalapril 20 mg daily to Lisinopril/HCTZ 20/12.5 daily. Patient now returns still complaining of frontal headache and palpitations, and her BP on arrival was found to be 185/98. Patient denies chest pain, blurry vision, dizziness, abdominal pain, n/v/d/c. Note patient no longer c/o of any shortness of breath, coughing, wheezing, or fevers at this time. Medical Hx: HTN, DM II, Migraine headaches Surgical Hx: Cholecystectomy All: Seasonal allergies, NKDA Medications: -Lisinopril/HCTZ 20/12.5 daily -Butalbital/ASA/Caffeine 5/325/40 1 tab daily prn LIND -Januvia 100 mg PO daily -Also brought with her recently once-prescribed medications from recent ER and office visits - Codeine/Promethazine cough syrup, Zofran, Claritan-D, Prednisone Family hx: unknown Social: Denies alcohol, tobacco, drug use PMD: Dr. Velazquez Present on Admission - Present on Admission Any Indicators Present on Admission: No Review of Systems - Constitutional Constitutional: absent: Chills, Fever - EENT Eyes: absent: Blurred Vision, Diplopia Nose/Mouth/Throat: absent: Nasal Congestion, Nasal Discharge - Cardiovascular Cardiovascular: Palpitations, Rapid Heart Rate. absent: Chest Pain, Dyspnea, Pedal Edema - Respiratory Respiratory: absent: Cough, Dyspnea, Dyspnea on Exertion - Gastrointestinal Gastrointestinal: absent: Abdominal Pain, Diarrhea, Nausea, Vomiting - Musculoskeletal Musculoskeletal: absent: Back Pain, Neck Pain - Neurological Neurological: Headaches. absent: Confusion, Dizziness, Focal Weakness, Weakness - Psychiatric Psychiatric: absent: Anxiety, Depression - Hematologic/Lymphatic Hematologic: absent: Easy Bleeding, Easy Bruising Past Patient History - Infectious Disease Hx of Infectious Diseases: None - Past Social History Smoking Status: Never Smoked - CARDIAC Hx Hypertension: Yes - PULMONARY Hx Asthma: Yes Hx Bronchitis: Yes - NEUROLOGICAL Hx Migraine: Yes - RENAL Other/Comment: renal cyst - ENDOCRINE/METABOLIC Hx Endocrine Disorders: Yes Hx Diabetes Mellitus Type 2: Yes - MUSCULOSKELETAL/RHEUMATOLOGICAL Hx Arthritis: Yes Hx Osteoporosis: Yes - PSYCHIATRIC Hx Substance Use: No - SURGICAL HISTORY Hx Cholecystectomy: Yes - ANESTHESIA Hx Anesthesia: Yes Hx Anesthesia Reactions: No Meds Allergies/Adverse Reactions: Allergies Allergy/AdvReac Type Severity Reaction Status Date / Time seasonal Allergy ITCHING Uncoded 12/05/18 23:08 Physical Exam - Constitutional Appears: Non-toxic, No Acute Distress - Head Exam Head Exam: ATRAUMATIC, NORMOCEPHALIC - Eye Exam Eye Exam: EOMI - ENT Exam ENT Exam: Mucous Membranes Moist - Respiratory Exam Respiratory Exam: Clear to Auscultation Bilateral, NORMAL BREATHING PATTERN. absent: Accessory Muscle Use, Rales, Rhonchi, Wheezes - Cardiovascular Exam Cardiovascular Exam: REGULAR RHYTHM, +S1, +S2. absent: Tachycardia, Diastolic murmur, JVD, Systolic Murmur - GI/Abdominal Exam GI & Abdominal Exam: Normal Bowel Sounds, Soft. absent: Distended, Tenderness - Extremities Exam Extremities exam: Positive for: normal inspection. Negative for: pedal edema, tenderness - Neurological Exam Neurological exam: Alert, CN II-XII Intact, Oriented x3 - Psychiatric Exam Psychiatric exam: Normal Affect, Normal Mood - Skin Skin Exam: Dry, Intact Results - Vital Signs Recent Vital Signs: Last Vital Signs Temp 98.6 F 12/06/18 01:11 Pulse 65 12/06/18 01:11 Resp 20 12/06/18 01:11 BP 185/98 H 12/06/18 01:11 Pulse Ox 97 12/06/18 01:11 - Labs Result Diagrams: 12/05/18 23:41 12/05/18 23:41 Labs: Laboratory Results - last 24 hr 12/05/18 12/05/18 12/05/18 23:14 23:41 23:41 WBC 11.4 H RBC 5.12 Hgb 16.0 Hct 48.2 H MCV 94.2 MCH 31.3 H MCHC 33.2 RDW 13.4 Plt Count 304 MPV 10.3 Neut % (Auto) 75.9 H Lymph % (Auto) 20.1 [place] % (Auto) 3.6 Eos % (Auto) 0.1 Baso % (Auto) 0.3 Neut # (Auto) 8.6 H Lymph # (Auto) 2.3 [place] # (Auto) 0.4 Eos # (Auto) 0.0 Baso # (Auto) 0.0 Sodium 138 Potassium 4.3 Chloride 98 Carbon Dioxide 28 Anion Gap 16 BUN 20 H Creatinine 0.8 Est GFR ( Amer) > 60 Est GFR (Non-Af Amer) > 60 POC Glucose (mg/dL) 148 H Random Glucose 139 H Calcium 9.4 Magnesium 1.8 Total Bilirubin 0.8 AST 25 ALT 33 Alkaline Phosphatase 90 Troponin I Total Protein 7.8 Albumin 4.7 Globulin 3.1 Albumin/Globulin Ratio 1.5 12/06/18 00:23 WBC RBC Hgb Hct MCV MCH MCHC RDW Plt Count MPV Neut % (Auto) Lymph % (Auto) [place] % (Auto) Eos % (Auto) Baso % (Auto) Neut # (Auto) Lymph # (Auto) [place] # (Auto) Eos # (Auto) Baso # (Auto) Sodium Potassium Chloride Carbon Dioxide Anion Gap BUN Creatinine Est GFR ( Amer) Est GFR (Non-Af Amer) POC Glucose (mg/dL) Random Glucose Calcium Magnesium Total Bilirubin AST ALT Alkaline Phosphatase Troponin I < 0.0120 Total Protein Albumin Globulin Albumin/Globulin Ratio Assessment & Plan - Assessment and Plan (Free Text) Assessment: Hypertension -Admitted for observation -181/109 on initial presentation -5mg Lopressor IV given in ED --> BP remains elevated at 185/98 -Recently meds increased from Enalapril 20 mg PO daily to Lisinopril/HCTZ 20/12.5 -Increasing BP med regimen --Amlodipine 5/Enalapril 10mg PO daily (substitute for Lotrel - Amlodipine/Benazepril 5/20) --HCTZ 25 mg PO daily -Hold nasal decongestants causing elevated BP DM -Januvia 100 mg PO daily -ISS low -Accuchecks ACHS -Hypoglycemia protocol PPx -DVT: Heparin 5000 U SC Q8 Assessment and plan discussed with Dr. Suellen Hartman, PGY-1
[2018-12-06 07:12] LABS: BASO # 0.1 K/uL (0.0-0.2); BASO % 0.6 % (0.0-2.0); EOS # 0.1 K/uL (0.0-0.7); EOS % 0.6 % (0.0-4.0); HEMOGLOBIN 14.3 g/dL (11.0-16.0); LYMPH # 4.4 K/uL (1.0-4.3); LYMPH % 35.8 % (20.0-40.0); MEAN CELL VOLUME 94.5 fL (81.0-99.0); MEAN CORPUSCULAR HEMOGLOBIN 31.1 pg (27.0-31.0); MEAN CORPUSCULAR HGB CONC 32.9 g/dL (33.0-37.0); MEAN PLATELET VOLUME 9.8 fL (7.2-11.7); MONO # 0.8 K/uL (0.0-0.8); MONO % 6.4 % (0.0-10.0); NEUT % 56.6 % (50.0-75.0); RBC 4.61 Mil/uL (3.80-5.20); RED CELL DISTRIBUTION WIDTH 13.3 % (11.5-14.5); WHITE BLOOD COUNT 12.4 K/uL (4.8-10.8)
[2018-12-06] MEDS: (Novolin R) Insulin Human Regular 100 units/ml vial SC SCH ×3 (07:53→17:10)
[2018-12-06 07:54] LABS: CK-MB 0.53 ng/mL (0.0-3.38)
[2018-12-06 08:18] LABS: ALB/GLOB RATIO 1.4 (1.0-2.1); ALBUMIN 3.9 g/dL (3.5-5.0); ALT/SGPT 34 U/L (9-52); AST/SGOT 29 U/L (14-36); BLOOD UREA NITROGEN 17 mg/dL (7-17); CALCIUM 9.4 mg/dl (8.6-10.4); GFR NON-AFRICAN AMERICAN > 60
--- NOTE | 2018-12-06 13:36 | CP.PCM.DIS ---
Provider - Provider Date of Admission: 12/06/18 00:08 Attending physician: Jeffrey Ken Jr, MD Time Spent in preparation of Discharge (in minutes): 70 Diagnosis - Discharge Diagnosis (1) Uncontrolled hypertension Status: Acute Hospital Course - Lab Results Lab Results: Most Recent Lab Values WBC 12.4 K/uL (4.8-10.8) H 12/06/18 07:04 RBC 4.61 Mil/uL (3.80-5.20) 12/06/18 07:04 Hgb 14.3 g/dL (11.0-16.0) 12/06/18 07:04 Hct 43.5 % (34.0-47.0) 12/06/18 07:04 MCV 94.5 fL (81.0-99.0) 12/06/18 07:04 MCH 31.1 pg (27.0-31.0) H 12/06/18 07:04 MCHC 32.9 g/dL (33.0-37.0) L 12/06/18 07:04 RDW 13.3 % (11.5-14.5) 12/06/18 07:04 Plt Count 265 K/uL (130-400) 12/06/18 07:04 MPV 9.8 fL (7.2-11.7) 12/06/18 07:04 Neut % (Auto) 56.6 % (50.0-75.0) 12/06/18 07:04 Lymph % (Auto) 35.8 % (20.0-40.0) 12/06/18 07:04 [place] % (Auto) 6.4 % (0.0-10.0) 12/06/18 07:04 Eos % (Auto) 0.6 % (0.0-4.0) 12/06/18 07:04 Baso % (Auto) 0.6 % (0.0-2.0) 12/06/18 07:04 Neut # (Auto) 7.0 K/uL (1.8-7.0) 12/06/18 07:04 Lymph # (Auto) 4.4 K/uL (1.0-4.3) H 12/06/18 07:04 [place] # (Auto) 0.8 K/uL (0.0-0.8) 12/06/18 07:04 Eos # (Auto) 0.1 K/uL (0.0-0.7) 12/06/18 07:04 Baso # (Auto) 0.1 K/uL (0.0-0.2) 12/06/18 07:04 Sodium 137 mmol/L (132-148) 12/06/18 07:04 Potassium 3.8 mmol/L (3.6-5.2) 12/06/18 07:04 Chloride 101 mmol/L (98-107) 12/06/18 07:04 Carbon Dioxide 27 mmol/L (22-30) 12/06/18 07:04 Anion Gap 12 (10-20) 12/06/18 07:04 BUN 17 mg/dL (7-17) 12/06/18 07:04 Creatinine 0.8 mg/dL (0.7-1.2) 12/06/18 07:04 Est GFR ( Amer) > 60 12/06/18 07:04 Est GFR (Non-Af Amer) > 60 12/06/18 07:04 POC Glucose (mg/dL) 164 mg/dL (65-110) H 12/06/18 10:58 Random Glucose 100 mg/dL (65-105) D 12/06/18 07:04 Calcium 9.4 mg/dl (8.6-10.4) 12/06/18 07:04 Magnesium 1.8 mg/dL (1.6-2.3) 12/05/18 23:41 Total Bilirubin 0.8 mg/dL (0.2-1.3) 12/06/18 07:04 AST 29 U/L (14-36) 12/06/18 07:04 ALT 34 U/L (9-52) 12/06/18 07:04 Alkaline Phosphatase 76 U/L (38-126) 12/06/18 07:04 Total Creatine Kinase 26 U/L (30-135) L 12/06/18 07:04 CK-MB (Mass) 0.53 ng/mL (0.0-3.38) 12/06/18 07:04 Troponin I < 0.0120 ng/mL (0.00-0.120) 12/06/18 07:04 Total Protein 6.7 g/dL (6.3-8.3) 12/06/18 07:04 Albumin 3.9 g/dL (3.5-5.0) 12/06/18 07:04 Globulin 2.8 gm/dL (2.2-3.9) 12/06/18 07:04 Albumin/Globulin Ratio 1.4 (1.0-2.1) 12/06/18 07:04 - Hospital Course Hospital Course: Upon Admission: Patient is a 62 year old female who presents with complaints of palpitations and headache, as well as high blood pressure from multiple ER visits this week. This past Thursday 11/30 patient went to see her title i teacher for a routine visit and states she was told her BP was high during that office visit. The following evening she presented to [facility] ED for complaints of cough and shortness of breath, was discharged with prescriptions for cough syrup, claritan D, and prednisone. Patient returned to ED on Monday morning with LIND and BP was 167/111 in ED, patient was sent home. She returned again with similar symptoms that evening and was again discharged and told to follow up with primary. Patient saw PMD Dr. Velazquez yesterday and meds were changed from Enalapril 20 mg daily to Lisinopril/HCTZ 20/12.5 daily. Patient now returns still complaining of frontal headache and palpitations, and her BP on arrival was found to be 185/98. Patient denies chest pain, blurry vision, dizziness, abdominal pain, n/v/d/c. Note patient no longer c/o of any shortness of breath, coughing, wheezing, or fevers at this time. In the ED, patient was given lopressor IV Patient was admitted for uncontrolled hypertension. Hospital Course: Patient was admitted for uncontrolled hypertension. She was started on HCTZ 25, vasotec 10, amlodipine 5. BP improved to 128/84. Patient's symptoms improved the following day. Patient was deemed stable for discharge. Upon Discharge: Patient was deemed stable for discharge to home. She was given instructions to follow up with her primary care physician and take newly prescribed medications. Patient understood instructions and agreed. Discharge Exam - Head Exam Head Exam: ATRAUMATIC, NORMOCEPHALIC - Eye Exam Eye Exam: EOMI, Normal appearance Pupil Exam: NORMAL ACCOMODATION - Respiratory Exam Respiratory Exam: Clear to PA & Lateral, NORMAL BREATHING PATTERN. absent: Rales, Rhonchi, Wheezes - Cardiovascular Exam Cardiovascular Exam: REGULAR RHYTHM, +S1, +S2. absent: Gallop, Rubs, Systolic Murmur - GI/Abdominal Exam GI & Abdominal Exam: Normal Bowel Sounds, Soft. absent: Distended, Pulsatile Mass, Tenderness Additional comments: no abdominal or renal bruits appreciated - Extremities Exam Extremities exam: normal inspection - Neurological Exam Neurological exam: Alert, CN II-XII Intact, Oriented x3 - Psychiatric Exam Psychiatric exam: Normal Affect, Normal Mood Discharge Plan - Discharge Medications Prescriptions: amLODIPine [Norvasc] 5 mg PO DAILY #30 tab Enalapril Maleate [Vasotec] 10 mg PO DAILY #30 tab hydroCHLOROthiazide [Hydrodiuril] 25 mg PO DAILY #30 tab SITagliptin [Januvia] 100 mg PO DAILY #30 tab - Follow Up Plan Condition: STABLE Disposition: HOME/ ROUTINE Instructions: Hypertension (DC), Hypertension (GEN) Additional Instructions: Please follow up with your primary care physician within 2 weeks. Please take your medications as prescribed. If symptoms recur, please return to the emergency department. Take care and be well. Por favor adalberto un seguimiento con shafer mdico de atencin primaria dentro de las 2 semanas. Por favor, tome guy medicamentos segn lo prescrito. Si los sntomas se repiten, por favor regrese al departamento de emergencias. Cudate y sintete kaitlynn.
[2018-12-06 14:09] LABS: CK-MB 0.39 ng/mL (0.0-3.38)
[2018-12-06 15:46] VITALS: BP 100/68; PULSE 77; TEMP 98; O2SAT 97
--- NOTE | 2018-12-06 18:51 | CARD ---
APPROVED REPORT Date of service: 12/05/2018 EKG Measurement Heart [id number] CO [id number] <Conclusion> Normal sinus rhythm Possible Left atrial enlargement Incomplete right bundle branch block Left ventricular hypertrophy with repolarization abnormality Abnormal ECG
[2018-12-06] MEDS ORDERED: Influenza Vaccine 60 mcg/0.5 mL SYR (4YR UP) IM ONE (19:39)
[2018-12-06] MEDS ORDERED: Pneumococcal 23-Valent Vaccine IM ONE (19:40)
[2018-12-07] MEDS ORDERED: Influenza Vaccine 60 mcg/0.5 mL SYR (4YR UP) IM ONE (10:00)
[2018-12-07] MEDS ORDERED: Pneumococcal 23-Valent Vaccine IM ONE (10:00)
== END 2018-12-06 21:45 | disposition home or self-care (01) ==
LOC: C.ER 22:55 → C.6T 12-06 00:08
PROVIDERS: ADMIT Internal Medicine; ATTEND Internal Medicine
DX: I10 Essential (primary) hypertension (principal); E11.9 Type 2 diabetes mellitus without complications; J40 Bronchitis, not specified as acute or chronic; Z79.84 Long term (current) use of oral hypoglycemic drugs; M81.0 Age-related osteoporosis without current pathological fracture
CPT/HCPCS: 36415; 80053; 82948; 83735; 84484; 85025; 90674; 90732; 93005; 96372; 96374; 99285; G0008; G0009; G0378; J1644

== ENCOUNTER 2018-12-08 17:43 | Emergency (ER) | payer MEDICARE, MEDICAID ==
[2018-12-08 17:53] VITALS: TEMP 98.3
--- NOTE | 2018-12-08 18:39 | C.PDOC ---
History Of Present Illness 62 y/o female comes in complaining of persistent headache that worsens when lying down but better sitting up. Patient reports headache is felt behind her eyes. States headache has moderately improved with ibuprofen 600. Patient has been seen in doctors offices and emergency departments on December 02 twice, and December 05 overnight to december 06, blood pressure medications changed. Patient has good compliance with norvasc 5, vasotec 10, and HCTZ 25. Patient has many complaints of overwhelming sense of impending doom that she is gonna , and her children with no mother and with no . Patient has poor insight to the many evaluations that were done this week and still believes theres some underlying fatal pathology. Time Seen by Provider: 12/08/18 18:12 Chief Complaint (Nursing): Headache History Per: Patient History/Exam Limitations: None Onset/Duration Of Symptoms: Days Current Symptoms Are (Timing): Still Present Past Medical History Reviewed: Historical Data, Nursing Documentation, Vital Signs Vital Signs: Last Vital Signs Temp 98.3 F 12/08/18 17:46 Pulse 102 H 12/08/18 17:46 Resp 16 12/08/18 17:46 BP 123/86 12/08/18 17:46 Pulse Ox 99 12/08/18 17:46 - Medical History PMH: Arthritis, Asthma, Bronchitis, HTN, Migraine, Osteoporosis Surgical History: Cholecystectomy - [facility] Procedures INCIS VULVA/PERINEUM NEC (06/16/14) TETANUS TOXOID ADMINIST (06/16/14) Family History: States: No Known Family Hx - Social History Hx Tobacco Use: No Hx Alcohol Use: No Hx Substance Use: No - Immunization History Hx Tetanus Toxoid Vaccination: No Hx Influenza Vaccination: No Hx Pneumococcal Vaccination: No Review Of Systems Except As Marked, All Systems Reviewed And Found Negative. Constitutional: Negative for: Fever, Chills, Sweats Cardiovascular: Negative for: Chest Pain Respiratory: Negative for: Shortness of Breath Gastrointestinal: Negative for: Nausea, Vomiting, Diarrhea Neurological: Positive for: Headache. Negative for: Dizziness Physical Exam - Physical Exam Appears: Non-toxic, No Acute Distress, Other (Anxious) Skin: Warm, Dry Head: Atraumatic, Normacephalic Eye(s): bilateral: Normal Inspection Nose: No Discharge, Other (increased nasal passage inflammation) Oral Mucosa: Moist Neck: Supple Cardiovascular: Rhythm Regular, No Murmur Respiratory: Normal Breath Sounds, No Rales, No Rhonchi, No Wheezing Gastrointestinal/Abdominal: Soft, No Tenderness Extremity: Bilateral: Atraumatic, Normal Color And Temperature, Normal ROM Neurological/Psych: Other (Awake, alert, pressured speech) ED Course And Treatment O2 Sat by Pulse Oximetry: 99 (RA) Pulse Ox Interpretation: Normal Medical Decision Making Medical Decision Making: sinus headaches, positional and behind eyes + nasal passage inflammation without discharge h/o seasonal allergies and recent URI contributory to tendency to nasal passage inflammation avoid pseudafed for BP increases pt with severe anxiety- perseverates about impending doom even understanding normal workups head CT neg 11/20 Card Nuc Stress neg 06/16 normal BP today EXTENSIVELY educated about her mild nasal passage inflammation and anxiety all recent studies reviewed multiple times to pt's ultimate understanding. pt now believes she is not imminently dying tx for sinus headaches/inflammation educated and verbally understood. Disposition Doctor Will See Patient In The: Office Counseled Patient/Family Regarding: Studies Performed, Diagnosis - Disposition Referrals: [facility] [Outside] [facility] [Outside] [facility] [Outside] Eliza Baker MD [Medical Doctor] - Disposition: HOME/ ROUTINE Disposition Time: 18:40 Condition: GOOD Additional Instructions: Flonase epray esteroidal 1 espray cada lado del nariz cada lado del nariz cada 12 horas hasta el verano (se vende sin receta) ibuprofeno 400-600 mg cada 6 horas baylee necessario Sigue con shafer medico baylee necessario Instructions: Sinus Headache (DC) Forms: [facility] (Danish) Print Language: GREEK - Clinical Impression Clinical Impression: Headache, Anxiety about health - Scribe Statement The provider has reviewed the documentation as recorded by the Aimee Deshpande Provider Attestation: All medical record entries made by the Scribe were at my direction and personally dictated by me. I have reviewed the chart and agree that the record accurately reflects my personal performance of the history, physical exam, medical decision making, and the department course for this patient. I have also personally directed, reviewed, and agree with the discharge instructions and disposition.
[2018-12-08 18:59] VITALS: BP 116/77; PULSE 88; RESP 18
[2018-12-08 19:03] VITALS: O2SAT 99
== END 2018-12-08 19:02 | disposition home or self-care (01) ==
LOC: C.ER 17:43
DX: R51 Headache (principal); F41.9 Anxiety disorder, unspecified